=== PATIENT | female | born 1960 | race Caucasian/White ===

== ENCOUNTER → 2016-07-01 | Outpatient (CLI) | payer OTHER ==
--- NOTE | 2016-07-01 09:03 | MA ---
Screening Digital Mammogram With iCAD Analysis Clinical Indications: Routine screening. Her mother was diagnosed with breast cancer in her 50s. Technique: Standard cephalocaudal and mediolateral oblique projections were obtained. This examinatio n was processed by the iCAD computer aided detection system. Comparison: June 2015, February 2014, May 2013, May 2012, May 2011, May 2010, May 2009. Breast density: Type C; Heterogeneously dense. Findings: CAD was reviewed. No masses, suspicious calcifications or other signs of malignancy are id entified. There has been no significant change in the appearance of either breast. Impression: Negative mammogram. BI-RADS 1. Recommendation: Routine mammographic screening in 1 year as long as physical examination is negative in this patient with heterogeneously dense breast parenchyma. [facility] will send a result letter to the patient. Dense breast parenchyma diminishes mammographic sensitivity. Negative mammography should not preclude additional workup of a clinically suspicious finding. The patient's information is entered into a reminder system with a target due date for her next mammo gram.
== END ==
LOC: BMCIMAGING 08:02
DX: Z12.31 Encounter for screening mammogram for malignant neoplasm of breast (principal); Z80.3 Family history of malignant neoplasm of breast
CPT/HCPCS: G0202

== ENCOUNTER 2016-12-30 12:05 | Emergency (ER) | payer OTHER ==
[2016-12-30 12:13] VITALS: RESP 16; TEMP 98.2
--- NOTE | 2016-12-30 12:30 | CPEKG ---
Heart Rate: 146 RR Interval: 411 P-R Interval: 232 QRSD Interval: 66 QT Interval: 316 QTC Interval: 493 P Helm: 59 QRS Helm: 9 T Wave [place]: 58 EKG Severity - ABNORMAL ECG - EKG Impression: SINUS TACHYCARDIA WITH IRREGULAR RATE 98-165 EKG Impression: FIRST DEGREE AV BLOCK Electronically Signed By: Iam Benites 30-Dec-2016 15:11:29
[2016-12-30] MEDS ORDERED: DILTIAZEM 125 MG in D5W 125 ML IV ONE (12:34)
[2016-12-30] MEDS ORDERED: DILTIAZEM 25 MG/5 ML VIAL IVP ONE (12:34)
[2016-12-30] MEDS ORDERED: NS 1,000 ML IV ONE ×2 (12:34→13:43)
--- NOTE | 2016-12-30 12:36 | EDPHY ---
H & P HPI/ROS: Chief complaint. Palpitations HPI. A 56-year-old female with history occasional fast heart rate off and on for about 5 years. She has had similar symptoms previously her symptoms seem to be frequently worse with dehydration caffeine. She has had off and on symptoms for the past 3 days and has been active outdoors and feels that she has been somewhat dehydrated. Today she had continued fast heart rate. No chest discomfort or shortness of breath. Slight dizziness. ROS Constitutional. no fever/chills, no weakness Eyes. no problems with vision ENT. no sore throat, no nasal drainage Cardiovascular. No chest pain but fast heart rate Respiratory. no shortness of breath, no cough Abdominal. no abdominal pain, no nausea/vomiting, no diarrhea . no problems urinating MS. no calf pain/swelling, no neck/back pain, no joint pain Skin. no rash Lymph. no swollen glands Neuro. no headache, no dizziness, no difficulty walking or with speech Past Medical/Surgical History: Heart palpitation Social History: , nonsmoker, no alcohol Smoking Status: Never smoked Physical Exam: General Appearance: Alert well-developed female mild distress vital signs initially show heart rate 89. Subsequently an EKG however heart rate is 146 Eyes: Pupils equal and round no pallor or injection. ENT, Mouth: Mucous membranes are moist. Respiratory: There are no retractions, lungs are clear to auscultation. Cardiovascular: Irregular rate and rhythm with tachycardia Gastrointestinal: Abdomen is soft and nontender, no masses, bowel sounds normal. Neurological: Awake and alert, sensory and motor exams grossly normal. Skin: Warm and dry, no rashes. Musculoskeletal: Neck is supple nontender. Extremities symmetrical, full range of motion. Psychiatric: Patient is oriented X 3, there is no agitation. Constitutional: Initial Vital Signs Temperature (C) 36.8 C 12/30/16 12:10 Heart Rate 89 12/30/16 12:10 Respiratory Rate 16 12/30/16 12:10 Blood Pressure 109/81 H 12/30/16 12:10 O2 Sat (%) 97 12/30/16 12:10 O2 Delivery Mode Nasal Cannula O2 (L/minute) 2 Allergies/Adverse Reactions: Sulfa (Sulfonamide Antibiotics) Allergy (Verified 10/04/14 13:25) Home Medications: Medication Instructions Recorded Hydrocodone/APAP 5/325 [[place] 1 - 2 tab PO Q4 #13 tab 04/23/15 5/325 (RX)] Medical Decision Making - Diagnostics EKG Interpretation: EKG 1. Shows atrial fibrillation with normal axis. QRS is normal there is no significant ST elevation or depression. The rate is 146 EKG 2. Shows normal sinus rhythm with normal interval and left axis deviation. There is left anterior fascicular block. No significant ST elevation or depression. Occasional PACs. Rate is 87 Imaging Results: Imaging Impressions Chest X-Ray 12/30/16 12:35 Impression: Lung hyperexpansion, with no evidence of congestive heart failure or focal infiltrate. Procedures: IV normal saline, monitor. Diltiazem 10 mg intravenously. ED Course/Re-evaluation: Re-evaluation patient has no symptoms. She is back in sinus rhythm. The patient, her , and I discussed laboratory evaluation, treatment plan including criteria for return importance of follow-up and further evaluation. They expressed understanding and agreement Consult and discussion with bony PA for Dr. Hu. She recommends aspirin only prior to further evaluation by Dr. Hu Differential Diagnosis: Set this as likely paroxysmal atrial fibrillation. It could certainly be precipitated by dehydration caffeine. I considered acute coronary syndrome as well as electrolyte abnormality - Data Points Laboratory Results: Laboratory Results 12/30/16 12:21 12/30/16 12:21 12/30/16 12/30/16 12:21 12:21 WBC 5.94 10^3/uL 10^3/uL (3.80-9.50) RBC 4.88 10^6/uL 10^6/uL (4.18-5.33) Hgb 15.3 g/dL g/dL (12.6-16.3) Hct 44.6 % % (38.0-47.0) MCV 91.4 fL fL (81.5-99.8) MCH 31.4 pg pg (27.9-34.1) MCHC 34.3 g/dL g/dL (32.4-36.7) RDW 12.3 % % (11.5-15.2) Plt Count 248 10^3/uL 10^3/uL (150-400) MPV 10.5 fL fL (8.7-11.7) Neut % (Auto) 45.2 % % (39.3-74.2) Lymph % (Auto) 42.4 % % (15.0-45.0) [place] % (Auto) 9.6 % % (4.5-13.0) Eos % (Auto) 1.2 % % (0.6-7.6) Baso % (Auto) 1.3 % % (0.3-1.7) Nucleat RBC Rel Count 0.0 % % (0.0-0.2) Absolute Neuts (auto) 2.68 10^3/uL 10^3/uL (1.70-6.50) Absolute Lymphs (auto) 2.52 10^3/uL 10^3/uL (1.00-3.00) Absolute Monos (auto) 0.57 10^3/uL 10^3/uL (0.30-0.80) Absolute Eos (auto) 0.07 10^3/uL 10^3/uL (0.03-0.40) Absolute Basos (auto) 0.08 10^3/uL 10^3/uL (0.02-0.10) Absolute Nucleated RBC 0.00 10^3/uL 10^3/uL (0-0.01) Immature Gran % 0.3 % % (0.0-1.1) Immature Gran # 0.02 10^3/uL 10^3/uL (0.00-0.10) Sodium 142 mEq/L mEq/L (134-144) Potassium 4.2 mEq/L mEq/L (3.5-5.2) Chloride 103 mEq/L mEq/L (97-110) Carbon Dioxide 24 mEq/l mEq/l (22-31) Anion Gap 15 mEq/L mEq/L (8-16) BUN 18 mg/dL mg/dL (7-23) Creatinine 0.8 mg/dL mg/dL (0.6-1.0) Estimated GFR > 60 Glucose 131 mg/dL H mg/dL (70-100) Calcium 10.2 mg/dL mg/dL (8.5-10.4) Troponin I < 0.012 ng/mL ng/mL (0-0.034) Medications Given: Discontinued Medications Diltiazem HCl (Cardizem 25 Mg/5 Ml Vial) 20 mg IVP EDNOW ONE Stop: 12/30/16 12:35 Last Admin: 12/30/16 12:40 Dose: 10 mg Diltiazem HCl 125 mg/ Dextrose 125 mls @ 0 mls/hr IV EDNOW ONE; As Directed PRN Reason: Protocol Stop: 12/30/16 12:35 Last Admin: 12/30/16 13:42 Dose: Not Given Sodium Chloride (Ns) 1,000 mls @ 0 mls/hr IV ONCE ONE; Wide Open PRN Reason: Protocol Stop: 12/30/16 12:35 Last Admin: 12/30/16 12:40 Dose: 1,000 mls Sodium Chloride (Ns) 1,000 mls @ 0 mls/hr IV ONCE ONE PRN Reason: Wide Open Stop: 12/30/16 13:44 Last Admin: 12/30/16 13:46 Dose: 1,000 mls Departure - Departure Disposition: Home, Routine, Self-Care Clinical Impression: Atrial fibrillation Qualifiers: Atrial fibrillation type: unspecified Qualified Code(s): I48.91 - Unspecified atrial fibrillation Condition: Good Instructions: A-fib (Atrial Fibrillation) (ED) Additional Instructions: Easy activity and stay hydrated. Caution with caffeine. Aspirin [address] Hu (cardiology) for further evaluation. Return for worsening fast heart rates, chest discomfort, trouble breathing Referrals: NONE *PRIMARY CARE P,. [Primary Care Provider] - As per Instructions Russ Hu MD [Medical Doctor] - 2-3 days, call for appt.
[2016-12-30 12:41] LABS: % IMMATURE GRANULYOCYTES 0.3 % (0.0-1.1); ABSOLUTE IMMATURE GRANULOCYTES 0.02 10^3/uL (0.00-0.10); ADD DIFF? NO; ADD MORPH? NO; ADD SCAN? NO; ATYPICAL LYMPHOCYTE FLAG 30 (0-99); FRAGMENT RBC FLAG 0 (0-99); HEMATOCRIT 44.6 % (38.0-47.0); HEMOGLOBIN 15.3 g/dL (12.6-16.3); LEFT SHIFT FLG 0 (0-99); LIPEMIA HEMOLYSIS FLAG 90 (0-99); MEAN CELL HEMOGLOBIN 31.4 pg (27.9-34.1); MEAN CELL HEMOGLOBIN CONCENTR. 34.3 g/dL (32.4-36.7); MEAN CELL VOLUME 91.4 fL (81.5-99.8); MEAN PLATELET VOLUME 10.5 fL (8.7-11.7); PLATELET CLUMPS FLAG 0 (0-99); PLATELET COUNT 248 10^3/uL (150-400); RED BLOOD CELL COUNT 4.88 10^6/uL (4.18-5.33); RED CELL DISTRIBUTION WIDTH 12.3 % (11.5-15.2)
[2016-12-30 12:52] LABS: ANION GAP 15 mEq/L (8-16); CALCIUM 10.2 mg/dL (8.5-10.4); CARBON DIOXIDE 24 mEq/l (22-31); CHLORIDE 103 mEq/L (97-110); CREATININE 0.8 mg/dL (0.6-1.0); GLOMERULAR FILTRATION RATE > 60; GLUCOSE 131 mg/dL (70-100); POTASSIUM 4.2 mEq/L (3.5-5.2); SODIUM 142 mEq/L (134-144)
[2016-12-30 13:04] LABS: TROPONIN I < 0.012 ng/mL (0-0.034)
--- NOTE | 2016-12-30 13:17 | CPEKG ---
Heart Rate: 87 RR Interval: 690 P-R Interval: 196 QRSD Interval: 74 QT Interval: 372 QTC Interval: 448 P [place]: 66 QRS [place]: -50 T Wave [place]: 63 EKG Severity - ABNORMAL ECG - EKG Impression: SINUS RHYTHM EKG Impression: MULTIPLE ATRIAL PREMATURE COMPLEXES EKG Impression: LEFT ANTERIOR FASCICULAR BLOCK Electronically Signed By: Iam Benites 30-Dec-2016 15:11:22
[2016-12-30 14:39] VITALS: BP 106/78; PULSE 73; O2SAT 96
== END 2016-12-30 14:41 | disposition home or self-care (01) ==
DX: I48.91 Unspecified atrial fibrillation (principal); E86.9 Volume depletion, unspecified
CPT/HCPCS: 96374

== ENCOUNTER 2017-02-08 20:04 | Emergency (ER) | payer OTHER ==
[2017-02-08 20:50] LABS: % IMMATURE GRANULYOCYTES 0.2 % (0.0-1.1); ABSOLUTE IMMATURE GRANULOCYTES 0.01 10^3/uL (0.00-0.10); ADD DIFF? NO; ADD MORPH? NO; ADD SCAN? NO; ATYPICAL LYMPHOCYTE FLAG 20 (0-99); FRAGMENT RBC FLAG 0 (0-99); HEMATOCRIT 42.8 % (38.0-47.0); HEMOGLOBIN 14.8 g/dL (12.6-16.3); LEFT SHIFT FLG 0 (0-99); LIPEMIA HEMOLYSIS FLAG 90 (0-99); MEAN CELL HEMOGLOBIN 31.2 pg (27.9-34.1); MEAN CELL HEMOGLOBIN CONCENTR. 34.6 g/dL (32.4-36.7); MEAN CELL VOLUME 90.3 fL (81.5-99.8); MEAN PLATELET VOLUME 10.4 fL (8.7-11.7); PLATELET CLUMPS FLAG 10 (0-99); PLATELET COUNT 232 10^3/uL (150-400); RED BLOOD CELL COUNT 4.74 10^6/uL (4.18-5.33); RED CELL DISTRIBUTION WIDTH 12.5 % (11.5-15.2)
--- NOTE | 2017-02-08 20:53 | EDPHY ---
H & P Time Seen by Provider: 02/08/17 20:44 HPI/ROS: CHIEF COMPLAINT: Dyspnea, Chest pain. HISTORY OF PRESENT ILLNESS: The patient is a 57-year-old female with history of atrial fibrillation presenting with 4 days of intermittent dyspnea and chest pain. The patient has intermittently been in atrial fibrillation since December 2016. She was started on Eliquis and Diltiazem. Patient has only experienced palpitations associated with her Afib. Over the past four days she reports intermittent episodes of shortness of breath and chest tightness associated with atrial fibrillation. She states she usually goes into atrial fibrillation in the evenings and only experiences these symptoms at that time. The chest tightness comes and goes. It is worse with deep inhalation. Patient has no cardiac symptoms with exertion. The patient additionally notes hot flashes that wake her from sleep. She attributes these to menopause. REVIEW OF SYSTEMS: A comprehensive 10 point review of systems is otherwise negative aside from elements mentioned in the history of present illness. Past Medical/Surgical History: Atrial fibrillation, Hypothyroidism Social History: . Lives in [place]. Smoking Status: Never smoked Physical Exam: General Appearance: Alert, pleasant Eyes: Pupils equal and round, no conjunctival pallor or injection ENT, Mouth: Mucous membranes moist Neck: Normal inspection Respiratory: Lungs are clear to auscultation Cardiovascular: Regular rate and rhythm Gastrointestinal: Abdomen is soft and non-tender Neurological: A&O, nonfocal, normal gait Skin: Warm and dry, no rash Extremities: Nontender, no pedal edema Psychiatric: Mood and affect normal Constitutional: Initial Vital Signs Temperature (C) 36.9 C 02/08/17 20:13 Heart Rate 93 02/08/17 20:13 Respiratory Rate 20 02/08/17 20:13 Blood Pressure 112/74 02/08/17 20:13 O2 Sat (%) 97 02/08/17 20:13 O2 Delivery Mode Room Air Allergies/Adverse Reactions: Sulfa (Sulfonamide Antibiotics) Allergy (Verified 02/08/17 20:12) Home Medications: Medication Instructions Recorded Hydrocodone/APAP 5/325 [[place] 1 - 2 tab PO Q4 #13 tab 10/04/14 5/325 (RX)] Diltiazem 02/08/17 Eliquis 02/08/17 Medical Decision Making - Diagnostics EKG Interpretation: EKG interpreted by me reveals normal sinus rhythm, normal axis, normal intervals , ST and T segments normal. Interpretation: normal EKG. Imaging Results: Chest X-Ray 02/08/17 20:44 Impression: No evidence of acute cardiopulmonary abnormality. ED Course/Re-evaluation: Patient with paroxysmal atrial fibrillation presents with intermittent episodes of shortness of breath and chest pain for the past 4 days, c/w symptomatic Afib. stat EKG reveals no ischemia or dysrhythmia. Remained in NSR and asymptomatic throughout her ED stay. Trop/ddimer negative, CXR normal. I doubt ACS in this pt with atypical and non-exertional cp. Given that she is on Eliquis, the likelihood of PE is quite low and low risk by Wells criteria. Pt most concerned about CVA and ACS; I had a prolonged conversation with her and tried to reassure her. O2 sat 96% on RA after ambulation, no SOB or cp. Plan to discharge patient home. Strict return precautions given. Differential Diagnosis: includes though not limited to ACS, PE, pneumonia, Afib with RVR, pulm edema - Data Points Laboratory Results: Laboratory Results 02/08/17 20:20 02/08/17 20:20 Departure - Departure Disposition: Home, Routine, Self-Care Clinical Impression: Paroxysmal atrial fibrillation Dyspnea Qualifiers: Dyspnea type: shortness of breath Qualified Code(s): R06.02 - Shortness of breath; R06.00 - Dyspnea, unspecified; R06.01 - Orthopnea Condition: Good Instructions: A-fib (Atrial Fibrillation) (ED), Dyspnea (ED) Additional Instructions: Keep your appointment with your supervisor tubing. Return to the Emergency Department with new or worsening symptoms. Referrals: Angela Blunt MD [Primary Care Provider] - As per Instructions Report Scribed for: Leah Lin Report Scribed by: Rosalba Britton Date of Report: 02/08/17 Time of Report: 20:53 Physician Review and Approval Statement: 02/08/17 20:53 Portions of this note were transcribed by a medical stenographer. I personally performed the history, physical exam, and medical decision-making; and confirmed the accuracy of the information in the transcribed note.
[2017-02-08 20:54] LABS: ALANINE AMINOTRANSFERASE 23 IU/L (9-52); ALBUMIN 4.3 g/dL (3.5-5.0); ALKALINE PHOSPHATASE 59 IU/L (38-126); ANION GAP 14 mEq/L (8-16); ASPARTATE AMINOTRANSFERASE 23 IU/L (14-46); BILIRUBIN,TOTAL 0.5 mg/dL (0.1-1.4); CALCIUM 9.8 mg/dL (8.5-10.4); CARBON DIOXIDE 26 mEq/l (22-31); CHLORIDE 102 mEq/L (97-110); CREATININE 0.8 mg/dL (0.6-1.0); GLOMERULAR FILTRATION RATE > 60; GLUCOSE 123 mg/dL (70-100); POTASSIUM 3.8 mEq/L (3.5-5.2); SODIUM 142 mEq/L (134-144)
[2017-02-08 21:06] LABS: TROPONIN I < 0.012 ng/mL (0.000-0.034)
--- NOTE | 2017-02-08 21:38 | CPEKG ---
Heart Rate: 80 RR Interval: 750 P-R Interval: 204 QRSD Interval: 74 QT Interval: 388 QTC Interval: 448 P [place]: 73 QRS [place]: 59 T Wave [place]: 70 EKG Severity - BORDERLINE ECG - EKG Impression: SINUS RHYTHM EKG Impression: PROBABLE LEFT ATRIAL ABNORMALITY EKG Impression: BORDERLINE T ABNORMALITIES, ANT-LAT LEADS Electronically Signed By: Leah Lin 08-Feb-2017 23:18:06
[2017-02-08 22:04] VITALS: BP 114/69; PULSE 73; RESP 18; TEMP 98.1; O2SAT 98
== END 2017-02-08 22:09 | disposition home or self-care (01) ==
DX: R06.01 Orthopnea (principal); R06.02 Shortness of breath; Z79.01 Long term (current) use of anticoagulants

== ENCOUNTER → 2017-02-16 | Outpatient (CLI) | payer OTHER | LOC: FIMAGING 08:19 | PROVIDERS: ATTEND Internal Medicine Endocrinology, Diabetes & Metabolism | DX: E04.2 Nontoxic multinodular goiter (principal); I48.91 Unspecified atrial fibrillation | CPT/HCPCS: A9516 ==

== ENCOUNTER 2017-03-09 06:54 | Observation (INO) | payer OTHER ==
[2017-03-09] MEDS ORDERED: NS 1,000 ML IV ONE (07:08)
[2017-03-09] MEDS ORDERED: LIDOCAINE 1% 300 MG/30 ML SDV ONE (07:21)
[2017-03-09] MEDS ORDERED: HEPARIN 10,000 UNIT/10 ML MDV ONE (07:21)
[2017-03-09] MEDS ORDERED: ISOPROTERENOL HCL/D5W 0.2 MG/50 ML BAG IV ONE (07:22)
[2017-03-09] MEDS ORDERED: BUPIVACAINE 0.5% 30 ML SDV ONE (07:22)
--- NOTE | 2017-03-09 07:24 | CPEKG ---
Heart Rate: 66 RR Interval: 909 P-R Interval: 192 QRSD Interval: 70 QT Interval: 404 QTC Interval: 424 P [place]: 77 QRS [place]: 38 T Wave [place]: 67 EKG Severity - ABNORMAL ECG - EKG Impression: SINUS RHYTHM EKG Impression: ABNRM R PROG, CONSIDER ASMI OR LEAD PLACEMENT Electronically Signed By: Raphael Hammer 09-Mar-2017 08:56:51
[2017-03-09 07:36] LABS: % IMMATURE GRANULYOCYTES 0.2 % (0.0-1.1); ABSOLUTE IMMATURE GRANULOCYTES 0.01 10^3/uL (0.00-0.10); ADD DIFF? NO; ADD MORPH? NO; ADD SCAN? NO; ATYPICAL LYMPHOCYTE FLAG 20 (0-99); FRAGMENT RBC FLAG 0 (0-99); HEMATOCRIT 41.9 % (38.0-47.0); HEMOGLOBIN 14.7 g/dL (12.6-16.3); LEFT SHIFT FLG 0 (0-99); LIPEMIA HEMOLYSIS FLAG 90 (0-99); MEAN CELL HEMOGLOBIN 31.5 pg (27.9-34.1); MEAN CELL HEMOGLOBIN CONCENTR. 35.1 g/dL (32.4-36.7); MEAN CELL VOLUME 89.9 fL (81.5-99.8); MEAN PLATELET VOLUME 10.1 fL (8.7-11.7); PLATELET CLUMPS FLAG 0 (0-99); PLATELET COUNT 243 10^3/uL (150-400); RED BLOOD CELL COUNT 4.66 10^6/uL (4.18-5.33)
[2017-03-09 07:46] LABS: INR 1.04 (0.83-1.16); PROTIME(PATIENT) 13.5 SEC (12.0-15.0)
[2017-03-09 07:47] LABS: APTT 25.6 SEC (23.0-38.0)
[2017-03-09 07:53] LABS: ANION GAP 8 mEq/L (8-16); CALCIUM 9.8 mg/dL (8.5-10.4); CARBON DIOXIDE 24 mEq/l (22-31); CHLORIDE 106 mEq/L (97-110); CREATININE 0.8 mg/dL (0.6-1.0); GLOMERULAR FILTRATION RATE > 60; GLUCOSE 84 mg/dL (70-100); MAGNESIUM 2.1 mg/dL (1.6-2.3); SODIUM 138 mEq/L (134-144)
[2017-03-09] MEDS ORDERED: MIDAZOLAM 2 MG/2 ML VIAL IVP ONE (08:05)
--- NOTE | 2017-03-09 08:05 | PDANEPAE ---
ANE History of Present Illness paroxysmal SVT for EP study/SVT ablation today ANE Past Medical History - Cardiovascular History Hx Hypertension: No Hx Arrhythmias: Yes Hx Chest Pain: No Hx Coronary Artery / Peripheral Vascular Disease: No Hx CHF / Valvular Disease: No Hx Palpitations: Yes - Pulmonary History Hx COPD: No Hx Asthma/Reactive Airway Disease: No Hx Recent Upper Respiratory Infection: No Hx Oxygen in Use at Home: No Hx Sleep Apnea: No - Endocrine History Hx Diabetes: No Hypothyroid: No Hyperthyroid: No Obesity: no - GI History GERD: mild - Surgical History Prior Surgeries: colonoscopy, knee scope ANE Review of Systems Review of systems is: negative Review of Systems: - Exercise capacity Exercise capacity: >=4 METS ANE Patient History - Allergies Allergies/Adverse Reactions: Sulfa (Sulfonamide Antibiotics) Allergy (Verified 02/08/17 20:12) - Home Medications Home medications: home medication list seen and reviewed Home Medications: Estradiol [Vivelle-Dot 0.0375MG (*)] 0.0375 mg TD TuFr@0800 03/09/17 [Last Taken 03/05/17] Metoprolol Succinate Xr [Toprol Xl 25 mg (*)] 25 mg PO DAILY 03/09/17 [Last Taken 03/04/17] Multivitamins [Multivitamin (*)] 1 each PO DAILY 03/09/17 [Last Taken Unknown] Progesterone, Micronized [Progesterone] 100 mg PO HS 03/09/17 [Last Taken ] Venlafaxine Xr [Effexor Xr 37.5MG (*)] 37.5 mg PO DAILY 03/09/17 [Last Taken ] - Anes Hx Anes Hx: no prior problems - Smoking Hx Smoking Status: Never smoked - Family Anes Hx Family Anes Hx: none ANE Labs/Vital Signs - Labs Result Diagrams: 03/09/17 07:28 03/09/17 07:28 ANE Physical Exam - Airway Neck exam: FROM Mallampati Score: Class 1 Mouth exam: normal dental/mouth exam - Pulmonary Pulmonary: no respiratory distress - Cardiovascular Cardiovascular: regular rate and rhythym - ASA Status ASA Status: II ANE Anesthesia Plan Anesthesia Plan: general endotracheal anesthesia
[2017-03-09] MEDS ORDERED: fentaNYL 100 MCG/2 ML INJ ONE (08:11)
[2017-03-09] MEDS ORDERED: DEXAMETHASONE 4 MG/ML VIAL ONE (08:11)
[2017-03-09] MEDS ORDERED: LIDOCAINE 2% 5 ML SDV ONE (08:11)
[2017-03-09] MEDS ORDERED: PROPOFOL 200 MG/20 ML VIAL ONE ×2 (08:11→09:02)
[2017-03-09] MEDS ORDERED: ROCURONIUM 100 MG/10 ML VIAL ONE (08:19)
[2017-03-09] MEDS ORDERED: PROPOFOL/EMULSION 500 MG/50 ML BOTTLE IV ONE ×3 (08:19→10:13)
[2017-03-09] MEDS ORDERED: ONDANSETRON 4 MG/2 ML VIAL ONE (08:19)
--- NOTE | 2017-03-09 09:10 | PDHPUP ---
History & Physical Update H&P update statement: This history and physical update is based on an assessment of the patient which was completed after admission or registration (within 24 hours), but prior to the surgery/procedure. H&P update: H&P reviewed & patient examined, no change in patient's condition since H&P completed
[2017-03-09] MEDS ORDERED: PROTAMINE SULFATE 50 MG/5 ML VIAL IVP ONE (10:32)
[2017-03-09] MEDS ORDERED: ONDANSETRON 4 MG/2 ML VIAL IVP PRN ×2 (10:33→10:51)
[2017-03-09] MEDS ORDERED: ACETAMINOPHEN 325 MG TAB PO PRN (10:33)
[2017-03-09] MEDS ORDERED: fentaNYL 100 MCG/2 ML INJ IVP PRN (10:51)
[2017-03-09] MEDS ORDERED: ALBUTEROL 3 ML DEYVIAL IH PRN (10:51)
[2017-03-09] MEDS ORDERED: PROMETHAZINE HCL 25 MG/ML INJ IVP PRN (10:51)
[2017-03-09] MEDS ORDERED: DEXAMETHASONE 4 MG/ML VIAL IVP PRN (10:51)
[2017-03-09] MEDS ORDERED: NALOXONE HCL 0.4 MG/ML INJ IVP PRN (10:51)
[2017-03-09] MEDS ORDERED: ACETAMINOPHEN 500 MG TAB PO PRN (10:51)
[2017-03-09] MEDS ORDERED: LR 500 ML IV PRN (10:51)
--- NOTE | 2017-03-09 10:51 | POSTANESTH ---
Post Anesthetic Evaluation Cardiovascular Status: Normal, Stable Respiratory Status: Normal, Stable Level of Consciousness/Mental Status: Can Participate in Eval Pain Control: Adequate, Prn Tx Ordered Nausea/Vomiting Control: Adequate, Prn Tx Ordered Complications Possibly Related to Anesthesia: None Noted
--- NOTE | 2017-03-09 11:13 | EPPROC ---
Electrophysiology Procedure Note: ELECTROPHYSIOLOGIC STUDY AND CATHETER MEDIATED ABLATION OF FOCAL ATRIAL TACHYCARDIA 2 foci PROCEDURES PERFORMED: 1. EP evaluation with RA/RV/LA pace/record, with arrhythmia induction 2. EP evaluation with RA/RV pace record, insert/reposition catheter, with arrhythmia induction 3. Intracardiac catheter ablation, SVT arrhythmogenic focus 4. 3D mapping 5. Second arrhythmia 6. Fluoroscopy Catheters and anesthesia: The patient arrived in the Electrophysiology Laboratory in the fasting state. The right clavicular region, right groin, and left groin area were prepped and draped in the usual sterile manner. Anesthesiologist administered propofol + LMA anesthesia. Appropriate non-invasive blood pressure, pulse oximetry and end -tidal CO2 monitoring was established. All catheters were placed percutaneously using the modified Seldinger technique , and advanced into position under fluoroscopic guidance. One #7 Turkish deflectable octapolar electrode catheter was advanced to the His-bundle position via the left femoral vein (2mm spacing; except the proximal ring which was 25cm from the tip used for unipolar recordings). One #7 Turkish deflectable catheter with 10 pairs of electrodes was placed via the left femoral vein into the coronary sinus. Maryann catheter was placed in the RA. Programmed stimulation was performed from the right atrium, left atrium ( coronary sinus) and right ventricle. Parahisian pacing demonstrated all retrograde conduction over the AV node Heparin was administered to keep ACT > 250 seconds. There was no antegrade slow AV mague pathway conduction. SCL 730 ms AH 65 ms HV 45 ms, Antegrade WBB 330 ms, Retrograde WBB 560 ms Programmed stimulation of right atrium and LA (CS) at baseline easily induced an atrial tachycardia --. AV dissociation was induced with ventricular overdrive pacing confirming atrial tachycardia. AT#1 Cl 350-370 ms. High resolution 3D Carto mapping was done. Earliest activation was along the lateral aspect of the mid noni terminalis. RF application at this site terminated AT during ablation and it was subsequently non inducible. AT#2 CL 380 ms was induced. 3D mapping was done. Earliest activation was at a location 2 cm superior and lateral to site of AT#1 ablation. RF application at this site rendered tachycardia noninducible. Prior to RF applications, high output pacing confirmed that there was no phrenic capture. Programmed stimulation in the baseline state and during infusion of isoproterenol 1, 2 mcg/min post ablation was performed. No tachycardia could be induced. The catheters were removed. The patient was transferred to the cardiovascular holding area in stable condition. Vascular access sheaths were removed in the holding area. There were no apparent complications. CONCLUSIONS: 1. Focal right atrial tachycardia, 2 separate foci, arising near lateral aspect of mid noni terminalis. 2. Successful ablation of focal atrial tachycardias. 3. No apparent complications. Patient Problems: Problems Problem Status Onset Dyspnea Acute
--- NOTE | 2017-03-09 11:55 | CPEKG ---
Heart Rate: 71 RR Interval: 845 P-R Interval: 200 QRSD Interval: 76 QT Interval: 420 QTC Interval: 457 P [place]: 74 QRS [place]: -9 T Wave [place]: 63 EKG Severity - ABNORMAL ECG - EKG Impression: SINUS RHYTHM EKG Impression: Left anterior fascicular block Electronically Signed By: Tip Weaver 09-Mar-2017 13:16:20
[2017-03-09 12:05] LABS: ANION GAP 11 mEq/L (8-16); CALCIUM 8.7 mg/dL (8.5-10.4); CARBON DIOXIDE 24 mEq/l (22-31); CHLORIDE 107 mEq/L (97-110); CREATININE 0.7 mg/dL (0.6-1.0); GLOMERULAR FILTRATION RATE > 60; GLUCOSE 79 mg/dL (70-100); MAGNESIUM 1.9 mg/dL (1.6-2.3); POTASSIUM 3.8 mEq/L (3.5-5.2); SODIUM 142 mEq/L (134-144)
[2017-03-09] MEDS: OXYCODONE/APAP 5/325 TAB PO PRN (13:23)
--- NOTE | 2017-03-09 15:23 | ASMTCMCOM ---
CM Note CM Note Notes: Case Management Note: Reviewed chart, unable to meet w/pt due to procedure. No Case Management d/c needs identified d/t pt age, marital status and activity levels prior to admission. No therapy evals ordered. Case management d/c poc: Home independent when medically stable. Date Signed: 03/09/2017 03:23 PM Electronically Signed By:Misty Coles RN
[2017-03-10] MEDS: OXYCODONE/APAP 5/325 TAB PO PRN (01:47)
[2017-03-10 05:20] LABS: ADD DIFF? NO; ADD MORPH? NO; ADD SCAN? NO; ATYPICAL LYMPHOCYTE FLAG 30 (0-99); FRAGMENT RBC FLAG 0 (0-99); HEMATOCRIT 37.3 % (38.0-47.0); HEMOGLOBIN 12.8 g/dL (12.6-16.3); LEFT SHIFT FLG 0 (0-99); LIPEMIA HEMOLYSIS FLAG 90 (0-99); MEAN CELL HEMOGLOBIN 31.5 pg (27.9-34.1); MEAN CELL HEMOGLOBIN CONCENTR. 34.3 g/dL (32.4-36.7); MEAN CELL VOLUME 91.9 fL (81.5-99.8); MEAN PLATELET VOLUME 10.1 fL (8.7-11.7); PLATELET CLUMPS FLAG 10 (0-99); PLATELET COUNT 180 10^3/uL (150-400); RED BLOOD CELL COUNT 4.06 10^6/uL (4.18-5.33)
[2017-03-10 05:36] LABS: ANION GAP 6 mEq/L (8-16); CALCIUM 9.1 mg/dL (8.5-10.4); CARBON DIOXIDE 25 mEq/l (22-31); CHLORIDE 106 mEq/L (97-110); CREATININE 0.8 mg/dL (0.6-1.0); GLOMERULAR FILTRATION RATE > 60; GLUCOSE 76 mg/dL (70-100); POTASSIUM 4.3 mEq/L (3.5-5.2); SODIUM 137 mEq/L (134-144)
[2017-03-10 05:44] LABS: CREATINE KINASE-MB FRACTION 2.45 ng/mL (0.00-3.19); TROPONIN I 0.334 ng/mL (0.000-0.034)
[2017-03-10 07:41] VITALS: BP 99/66; PULSE 79; RESP 21; TEMP 98.9; O2SAT 96
--- NOTE | 2017-03-10 08:51 | CPEKG ---
Heart Rate: 67 RR Interval: 896 P-R Interval: 204 QRSD Interval: 78 QT Interval: 400 QTC Interval: 423 P [place]: 79 QRS [place]: 62 T Wave [place]: 76 EKG Severity - ABNORMAL ECG - EKG Impression: SINUS RHYTHM EKG Impression: premature atrial contractions Electronically Signed By: Tip Weaver 10-Mar-2017 09:14:49
[2017-03-10] MEDS ORDERED: VENLAFAXINE XR 37.5 MG CAP PO SCH (09:00)
[2017-03-10] MEDS ORDERED: ASPIRIN 81 MG CHEWABLE TAB PO SCH (09:00)
[2017-03-10] MEDS ORDERED: MULTIVITAMINS 1 EACH TAB PO SCH (09:00)
--- NOTE | 2017-03-10 11:43 | ECHO ---
[email or web address] [address] [address] Main: [phone] Fax: [email or web address] Echocardiogram Name: LALITHA RAPHAEL MR#: [id number] Study Date: 03/10/2017 Study Time: 08:32 AM Date of : 1960 Age: 57 year(s) Height: 177.8 cm (70 in.) Weight: 60.78 kg (134 lb.) BSA: 1.76 m2 Gender: Female Examination: Echo Indication: Image Quality: Adequate Contrast: Requested by: Raphael Hammer BP: 99 mmHg/66 mmHg Heart Rate: 76 bpm Rhythm: Normal sinus rhythm with ectopy Indication: Procedure Staff Marksmanship Instructor: Yasmeen Webster Reading Physician: Leyla Mandel Conclusions: Normal size left ventricle. Normal global systolic LV function (EF 64 %). There is mild bileaflet mitral valve prolapse.There is no mtral valve regurgitation. Trivial to mild aortic valve regurgitation. Trivial to mild tricuspid valve regurgitation. The pulmonary artery pressure is normal. Small pericardial effusion. Compared with 12/2016 very small pericardial effusion is new No tamponade Measurements: Chambers Valvular Assessment AV/MV Valvular Assessment TV/PV Normal Normal Normal Name Value Range Name Value Range Name Value Range Ao Ellen (MM): 2.8 cm (2.2 cm-3.7 AV Vmax: 0.94 m/s (1 m/s-1.7 TR Vmax: 2.14 mm/s ( - ) cm) m/s) TR PGmax: 18 mmHg ( - ) IVSd (2D): 0.7 cm (0.6 cm-1.1 AV maxP mmHg ( - ) syst. PAP: 23 mmHg ( - ) cm) LVOT Vmax: 0.95 m/s (0.7 m/s-1.1 PV Vmax: 0.77 cm/s (0.6 m/s-0.9 LVDd (2D): 3.6 cm (3.9 cm-5.3 m/s) m/s) cm) MV E Vmax: 1.01 cm/s ( - ) PV PGmax: 2 mmHg ( - ) LVDs (2D): 2.0 cm (2.1 cm-4 MV A Vmax: 0.73 cm/s ( - ) cm) MV E/A: 1.38 ( - ) LVPWd (2D): 1.0 cm ( - ) LVEF (MOD4): 64 % (>=55 %) RVDd(2D): 3.4 cm (1.9 cm-3.8 cmmm) Continued Measurements: Chambers Valvular Assessment AV/MV Valvular Assessment TV/PV Name Value Name Value Name Value LA Area: 16.0 cm2 MV DecTime: 173 CVP (est.): 5 Patient: LALITHA RAPHAEL Study Date: 03/10/2017 Page 1 of 2 08:32 AM LA Volume: 40 ml MV E' Septal: 0.08 m/s LA Volume Index: 22.7 ml/m2 MV E/E' Septal: 12.60 MV E/E' Lateral: 13.60 Additional Vessels Name Value Ao Ascendin.9 cm Findings: Left Ventricle: Normal size left ventricle. No LV hypertrophy. Normal global systolic LV function (EF 64 %). Normal diastolic LV function. Right Ventricle: Normal size right ventricle. Left Atrium: The left atrium is normal in size. Right Atrium: The right atrium is normal in size. Mitral Valve: The mitral valve leaflets appear redundant. There is mild bileaflet mitral valve prolapse.There is no mtral valve regurgitation. Aortic Valve: The aortic valve is normal in appearance and function. Trivial to mild aortic valve regurgitation. Tricuspid Valve: The tricuspid valve is normal in appearance and function. Trivial to mild tricuspid valve regurgitation. The pulmonary artery pressure is normal. Pulmonic Valve: The pulmonic valve is normal in appearance and function. Aorta: The aorta is normal. Pericardium: Small pericardial effusion. (No Signature Object) Patient: LALITHA RAPHAEL Study Date: 03/10/2017 Page 2 of 2 08:32 AM [id number]
--- NOTE | 2017-03-10 15:43 | ASDISCHSUM ---
Discharge Information Plan Status:Home with No Needs Medically Cleared to Leave:03/10/2017 Discharge Date:03/10/2017 10:52 AM CM D/C Disposition:Home, Routine, Self-Care ADT D/C Disposition:Home, Routine, Self-Care Projected Discharge Date:03/10/2017 12:00 AM Transportation at D/C:Family Discharge Delay Reason: Follow-Up Date:03/10/2017 12:00 AM Discharge Slot: Final Diagnosis: Placement Information Patient Contact Information Contact Name:FLORES Relationship: Address:[address] [place] [address] City:[place] Alternate Phone: [facility]/Zip Code:[place] [address] Email: Financial Information Financial Class:HMO and PPO Plans Primary Plan Desc:[facility] PPO POS Primary Plan Number:[id number] Secondary Plan Desc: Secondary Plan Number: Assessment Information [facility] CM Progress Note CM Note CM Note Notes: Case Management Note: Reviewed chart, unable to meet w/pt due to procedure. No Case Management d/c needs identified d/t pt age, marital status and activity levels prior to admission. No therapy evals ordered. Case management d/c poc: Home independent when medically stable. Date Signed: 03/09/2017 03:23 PM Electronically Signed By:Misty Coles RN Intervention Information
--- NOTE | 2017-03-11 03:16 | GDS ---
[f rep st] DISCHARGE SUMMARY DISCHARGE DIAGNOSES: 1. Supraventricular tachycardia. 2. Status post ablation of atrial tachycardia. BRIEF HISTORY: This is a 57-year-old woman with a history of palpitations for the last 5 years. These have been increasing over the last 3 months and have not been controlled with propranolol. HOSPITAL COURSE: The patient underwent a successful ablation of atrial tachycardia. There were 2 separate foci arising near the lateral aspect of the mid noni terminalis. She has done well overnight, has not had any further SVT. She denies any chest pain, pressure, tightness, or shortness of breath. She denies any pain at her groin sites. Testing done: EKG demonstrates sinus rhythm with bigeminal PACs. Echocardiogram demonstrates normal LV function with ejection fraction of 64%. There is mild bileaflet mitral valve prolapse. There is trivial atrial regurgitation. There is a small pericardial effusion. LAB WORK: WBC is 3.87, hemoglobin 12.8, hematocrit 37.3, platelets 180. Sodium 137, potassium 4.3, chloride 106, bicarb 25, BUN 12, creatinine is 0.8. Glucose 76. CK 41, CK-MB 2.45. Troponin is 0.334, this is elevated and to be expected post ablation. PHYSICAL EXAMINATION: VITAL SIGNS: Blood pressure 99/66, pulse is 79, respirations 20, temperature is 37.2. O2 saturation on room air is 96%. GENERAL: She is alert and oriented, sitting up in bed, in no acute distress. CARDIAC: Regular rate and rhythm without murmur, rub, or gallop. LUNGS: Clear to auscultation. ABDOMEN: Soft, nontender. Groin sites are without bleeding or hematoma. Legs are warm without discoloration or edema. Bilateral +2 pedal pulses. DISCHARGE INSTRUCTIONS: Post ablation instructions were reviewed verbally with patient and she was given written instructions at discharge. She understands to go to ER for any chest discomfort or SOB. DISCHARGE MEDICATIONS: Please see discharge medication reconciliation. Of note , metoprolol 25 mg was kept on her list due to frequent PACs, however, she may stop this as it is only to treat symptoms. FOLLOWUP: She will have a followup echocardiogram done to evaluate the small pericardial effusion. This is scheduled for March 16 at [facility]. She has a followup with Dr. Hammer on April 14 at 4 p.m. /[id number]/MODL MTDD
== END 2017-03-10 10:52 | disposition home or self-care (01) ==
LOC: FSGY 06:54 → F2W 10:34
PROVIDERS: ADMIT Internal Medicine Cardiovascular Disease; ATTEND Internal Medicine Cardiovascular Disease
DX: I47.1 Supraventricular tachycardia (principal)
CPT/HCPCS: 93005; 93306; 93613; 93621; 93623; 93653; 93655; C1730; C1732; G0378; C1731; J1100; J1644; J2405; J2704; J2720; J3010

== ENCOUNTER → 2017-07-08 | Outpatient (CLI) | payer OTHER | LOC: FIMAGING 07:50 | PROVIDERS: ATTEND Obstetrics & Gynecology | DX: Z12.31 Encounter for screening mammogram for malignant neoplasm of breast (principal); Z80.3 Family history of malignant neoplasm of breast ==

== ENCOUNTER → 2018-07-25 | Outpatient (CLI) | payer OTHER | LOC: FIMAGING 16:11 | PROVIDERS: ATTEND Obstetrics & Gynecology | DX: Z12.31 Encounter for screening mammogram for malignant neoplasm of breast (principal) ==